=== PATIENT | female | born 1960 | race Caucasian/White ===

== ENCOUNTER 2018-06-07 03:25 | Emergency (ER) | payer OTHER ==
[~2018-06-07] VITALS: Ht 157.4 cm; Wt 72.6 kg
--- NOTE | ~2018-06-07 | EKG ---
[place], [place] ELECTROCARDIOGRAM REPORT NAME: GUNNER FREDERICK UNIT #: [id number] ROOM: DOCTOR: EPIPHANY DRAFT REPORT BIRTHDATE: [birth year] [facility] Test Date: 2018-06-07 Test Time: 04:06:36 Pat Name: GUNNER FREDERICK Department: Room: Gender: F Ticket Collector: [facility] : 1960 Requested By: JOHNATHAN MELTON Order Number: [id number] Reading MD: Margaux Clark MD Measurements Intervals [place] Rate: 84 P: 9 CA: 188 QRS: 1 QRSD: 87 T: 26 QT: 396 QTc: 469 Interpretive Statements Sinus rhythm Electronically Signed On 06-08-2018 9:16:17 PDT by Margaux Clark MD CM:EKGRPT:ELECTROCARDIOGRAM REPORT [id number] JOHNATHAN MELTON MD EPIPHANY DRAFT REPORT JOHNATHAN MELTON MD
[2018-06-07 04:12] LABS: BASO # 0.1 10*3/uL (0.0-0.1); BASO % 1.1 % (0.0-1.0); EOS # 0.1 10*3/uL (0.0-0.4); HEMOGLOBIN 13.5 g/dl (12.0-16.0); LYMPH # 2.4 10*3/uL (1.3-4.4); LYMPH % 28.2 % (27.0-41.0); MEAN CELL VOLUME 84.7 fl (81.0-99.0); MEAN CORPUSCULAR HGB 27.2 pg (27.0-31.0); MEAN CORPUSCULAR HGB CONC 32.1 g/dl (33.0-37.0); MEAN PLATELET VOLUME 10.8 fl (9.6-12.3); MONO # 0.4 10*3/uL (0.1-1.0); MONO % 5.3 % (3.0-9.0); NEUT # 5.4 10*3/uL (2.3-7.9); PLATELET COUNT AUTOMATED 223 10*3/uL (130-400); RED BLOOD COUNT 4.96 10*6/uL (4.10-5.10); RED CELL DISTRI WIDTH 13.2 % (0-14.5); WHITE BLOOD COUNT 8.4 10*3/uL (4.8-10.8)
[2018-06-07 05:01] LABS: BILIRUBIN NEGATIVE (NEGATIVE); BLOOD NEGATIVE (NEGATIVE); CLARITY SL CLOUDY (CLEAR); COLOR YELLOW (YELLOW); GLUCOSE NEGATIVE (NEGATIVE); KETONE NEGATIVE (NEGATIVE); LEUKO ESTERASE NEGATIVE (NEGATIVE); NITRITE NEGATIVE (NEGATIVE); SPECIFIC GRAVITY 1.015 (1.005-1.030); UROBILINOGEN 0.2 E.U./dl (0.2-1.0)
[2018-06-07 05:16] LABS: ALBUMIN 3.8 gm/dl (3.1-4.5); ALKALINE PHOSPHATASE 73 U/L (45-117); BUN 15 mg/dl (7-24); CHLORIDE 104 mmol/L (98-107); CREATININE 0.82 mg/dL (0.55-1.02); LIPASE 122 U/L (73-393); POTASSIUM 3.8 mmol/L (3.5-5.1); SGOT/AST 22 IU/L (3-35); SGPT/ALT 40 U/L (12-78); SODIUM 142 mmol/L (136-145); TOTAL PROTEIN 8.2 gm/dL (6.4-8.2); TROPONIN I < 0.015 ng/ml (<0.045)
[2018-06-07] MEDS ORDERED: ZOFRAN ODT4 MG SL (06:12)
== END 2018-06-07 06:36 | disposition home or self-care (01) ==
LOC: ED 03:25
PROVIDERS: Emergency Medicine Emergency Medical Services
DX: T62.91XA Toxic effect of unspecified noxious substance eaten as food, accidental (unintentional), initial encounter (principal); R11.2 Nausea with vomiting, unspecified; Z98.51 Tubal ligation status; Y92.89 Other specified places as the place of occurrence of the external cause

== ENCOUNTER → 2020-10-26 | Outpatient (CLI) | payer OTHER ==
[~2020-10-26] MED LIST: ZOFRAN ODT4 MG SL
== END | disposition home or self-care (01) ==
LOC: COVID19 10:44
PROVIDERS: ATTEND Family Medicine
DX: Z20.822 Contact with and (suspected) exposure to COVID-19 (principal)